=== PATIENT | male | born 1945 | race Caucasian/White ===

== ENCOUNTER 2016-12-28 15:04 | Emergency (ER) | payer OTHER ==
[~2016-12-28] VITALS: Ht 172.7 cm; Wt 90.5 kg
[~2016-12-28 15:04] MED LIST: ADVAIR 250-501 EACH IH; ADVAIR 250/501 DISK IH; ASPIRIN81 M1 PO; ASPIRIN81 M2 PO; DELTASONE DOSEPA5 MG PO; FLEXERIL10 MG PO; METOPROLOL SUCC25 MG PO; PERCOCET 10/1 TABLET PO; PLAVIX75 MG PO; PROTONIX40 MG PO; SIMVASTATIN40 MG PO; SIMVASTATIN80 M1 PO; SPIRIVA1 INHALATI IH; VENTOLIN HFA18 GM IH; VICODIN 5-5001 EACH PO; ZANTAC300 MG PO; ZESTRIL,PRINIVI20 MG PO; ZOCOR80 MG PO
[2016-12-28] MEDS ORDERED: FLEXERIL10 MG PO (16:50)
[2016-12-28] MEDS ORDERED: NAPROSYN500 MG PO (16:50)
[2016-12-28 17:01] VITALS: BP 143/78
== END 2016-12-28 17:02 | disposition home or self-care (01) ==
LOC: EME 15:04
DX: S16.1XXA Strain of muscle, fascia and tendon at neck level, initial encounter (principal); S50.812A Abrasion of left forearm, initial encounter; R51 Headache; H53.8 Other visual disturbances; V49.40XA Driver injured in collision with unspecified motor vehicles in traffic accident, initial encounter; W22.10XA Striking against or struck by unspecified automobile airbag, initial encounter; E78.5 Hyperlipidemia, unspecified; J44.9 Chronic obstructive pulmonary disease, unspecified; Z95.1 Presence of aortocoronary bypass graft; Z79.02 Long term (current) use of antithrombotics/antiplatelets; Z79.82 Long term (current) use of aspirin; Z87.891 Personal history of nicotine dependence
CPT/HCPCS: 70450; 72125; 99281; 99284